=== PATIENT | female | born 1995 | race Hispanic/Latino ===

== ENCOUNTER 2018-03-29 21:55 | Emergency (ER) | payer MEDICAID | END 2018-03-29 22:40 | disposition home or self-care (01) | LOC: EDH 21:55 | DX: R09.81 Nasal congestion (principal); R50.9 Fever, unspecified | CPT/HCPCS: 99281 ==

== ENCOUNTER 2018-12-10 19:32 | Emergency (ER) | payer MEDICAID, OTHER ==
[2018-12-10] MEDS ORDERED: ACETAMINOPHEN EXTRA STRENGTH 500 MG TABLET ONE (19:49)
== END 2018-12-10 20:40 | disposition home or self-care (01) ==
LOC: EDH 19:32
DX: J11.1 Influenza due to unidentified influenza virus with other respiratory manifestations (principal)

== ENCOUNTER 2023-06-26 17:07 | Emergency (ER) | payer BC ==
[~2023-06-26] VITALS: Ht 152.4 cm; Wt 70.3 kg
[2023-06-26] MEDS ORDERED: IBUPROFEN 800 MG TAB PO ONE (20:30)
[2023-06-26 21:15] VITALS: BP 128/74; PULSE 82; RESP 16; O2SAT 98
== END 2023-06-26 21:32 | disposition home or self-care (01) ==
LOC: EDH 17:07
DX: S60.221A Contusion of right hand, initial encounter (principal); W23.0XXA Caught, crushed, jammed, or pinched between moving objects, initial encounter; Y93.89 Activity, other specified; Y92.89 Other specified places as the place of occurrence of the external cause; Y99.8 Other external cause status
CPT/HCPCS: 73130